=== PATIENT | male | born 1980 | race Caucasian/White ===

== ENCOUNTER 2017-02-23 16:02 | Emergency (ER) | payer MEDICARE ==
[2017-02-23 19:11] LABS: BASOPHILS 0.6 % (0-2); EOSINOPHILS 3.1 % (0-7); HEMATOCRIT 48.1 % (42.0-54.0); HEMOGLOBIN 17.2 g/dL (13.5-17.5); IMMATURE GRANULOCYTES 0.1 % (0-5); LYMPHOCYTES 30.4 % (15-50); MCH 33.5 pg (26.0-34.0); MCHC 35.8 g/dL (31.0-37.0); MCV 93.6 fL (80.0-100.0); MEAN PLATELET VOLUME 9.4 fL (7.4-10.4); MONOCYTES 10.6 % (2-11); NEUTROPHILS 55.2 % (40-80); PLATELET COUNT 211 10x3/uL (130-400); RBC 5.14 10x6/uL (4.20-6.10); RDW 12.6 % (11.5-14.5); WBC 7.9 10x3/uL (4.8-10.8)
[2017-02-23 19:19] LABS: APPEARANCE CLEAR (CLEAR); BILIRUBIN NEGATIVE (NEGATIVE); COLOR YELLOW (YELLOW); GLUCOSE NEGATIVE (NEGATIVE); KETONE NEGATIVE (NEGATIVE); LEUKOCYTE ESTERASE NEGATIVE (NEGATIVE); NITRITE NEGATIVE (NEGATIVE); PROTEIN NEGATIVE (NEGATIVE); UROBILINOGEN NORMAL (NORMAL)
[2017-02-23 19:22] LABS: ALBUMIN 4.1 g/dL (3.4-5.0); ALKALINE PHOSPHATASE 59 U/L (46-116); ALT (SGPT) 25 U/L (10-68); BILIRUBIN - TOTAL 1.01 mg/dL (0.2-1.3); CALC OSMOLALITY 276 mosm/kg (275-300); CALCIUM 9.2 mg/dL (8.5-10.1); CARBON DIOXIDE 26.6 mmol/L (21.0-32.0); CHLORIDE - SERUM 102 mmol/L (98-107); CREATININE - SERUM 1.1 mg/dL (0.6-1.3); GLUCOSE 93 mg/dL (74-106); POTASSIUM - SERUM 3.9 mmol/L (3.5-5.1); PROTEIN - SERUM 7.8 g/dL (6.4-8.2); SODIUM 139 mmol/L (136-145); UREA NITROGEN 11 mg/dL (7-18); eGFR NON AFRICAN AMERICAN 81 mL/min (90-120)
== END 2017-02-23 21:22 | disposition home or self-care (01) ==
LOC: D.ER 16:02
PROVIDERS: Nurse Practitioner Family
DX: R20.0 Anesthesia of skin (principal); F17.200 Nicotine dependence, unspecified, uncomplicated